=== PATIENT | female | born 1960 | race Caucasian/White ===

== ENCOUNTER → 2018-11-12 | Outpatient (CLI) | payer BC ==
--- NOTE | 2018-11-12 16:18 | PCVCIMAG ---
APPROVED REPORT Indications Bruit Current Smoker Risk Factors Hypertension: Hyperlipidemia Diabetes Doppler Spectral Velocity Analysis PSV / EDVPSV / EDV ECA (R) 154 / 15 cm/sECA (L) 118 / 16 cm/s dICA (R) 65 / 26 cm/sdICA (L) 71 / 24 cm/s Jareth (R) 68 / 25 cm/smICA (L) 61 / 20 cm/s pICA (R) 86 / 28 cm/spICA (L) 65 / 21 cm/s Bulb (R) 98 / 29 cm/sBulb (L) 60 / 23 cm/s dCCA (R) 75 / 24 cm/sdCCA (L) 83 / 26 cm/s mCCA (R) 102 / 31 cm/smCCA (L) 101 / 32 cm/s Vert (R) 38 / 10 cm/sVert (L) 47 / 15 cm/s ICA/CCA 1.15ICA/CCA 0.86 Basic Measurements Blood Pressure: Pulses: Right Left RightLeft Brachial(Sitting) 120/56imOf397/74mmHgTemporal Real Time B-Mode Imaging Vert. (R)AntegradeVert. (L)Antegrade Findings The right carotid bulb has mild plaque. The right proximal internal carotid artery shows no significant stenosis. The right common carotid artery shows no significant stenosis. The right external carotid artery shows no significant stenosis. The left carotid bulb has mild plaque. The left proximal internal carotid artery shows no significant stenosis. The left common carotid artery shows no significant stenosis. The left external carotid artery shows no significant stenosis. Conclusion 1. Mild bilateral plaquing without significant stenosis. 2. Antegrade vertebral flow.
--- NOTE | 2018-11-12 17:34 | PCVCIMAG ---
APPROVED REPORT Study performed: 11/12/2018 15:40:57 Exam: Stress Echocardiogram Indication: Chest pain , Hypertension,dyspnea,palpitations Patient Location: Echo lab Stress Nurse: Kayla Toure RN Room #: 1 Status: routine Ht: 5 ft 9 in HR: 76 bpm BP: 116/68 mmHg Rhythm: Bifascicular block Medical History Medical History: Diabetes, HTN, Cardiac Risk Factors: HTN, DM, FHX of CAD Previous Cardiac Procedures: None Pretest Chest Pain Characteristics: SCAPULAR,BACK AND RIB PAIN AT REST Exercise History: Indeterminate Procedure The patient underwent an Exercise Stress Test using the Porsche Protocol. Blood pressure, heart rate, and EKG were monitored. An Echocardiogram was performed by land mobile radio technician in four stages in quad fashion. At peak stress, four selected images were obtained and placed side by side with resting images for comparison. Stress Test Details Stress Test: Exercise stress testing was performed using a Porsche protocol. HR Resting HR: 76 bpmMax Heart Rate (APMHR): 162 bpm Max HR Achieved: 155 bpmTarget HR (85% APMHR): 137 bpm % of APMHR: 95 Recovery HR: 84 bpm HR response to stress: Normal HR response to stress BP Resting BP: 116/68 mmHg Max BP: 164/86 mmHg Recovery BP: 110/70 mmHg BP response to stress: Normal blood pressure response to stress. ECG Resting ECG: Sinus Rhythm, RBBB Stress ECG: Sinus rhythm with frequent PVCs, resolved with exertion ST Change: Non-ischemic Maximum ST Deviation: 0 mm Arrhythmia: VPC's Recovery ECG: Sinus Rhythm, NSSTT changes Recovery ST Change: Non-ischemic Recovery ST Deviation: 0 mm Recovery Arrhythmia: Frequent PVCs Clinical Reason for Termination: Maximal effort Stress Symptoms: Fatigue, Exercise duration: 6 min 41 sec Highest Stage Achieved: Stage 3: 3.4 mph at 14% grade. Exercise capacity: 9.0 METs Overall Exercise Capacity for Age: Average Scale: Sedentary Angina Score: None No complications. Stress ECG Conclusion The patient exercised according to the PORSCHE protocol for 6:41 mins; achieving a work level of 9.0 METS. The resting heart rate of 76 bpm arturo to a maximum heart rate of 155 bpm. This value [id number] % of the maximal, age-predicted heart rate. The resting blood pressure of 116/68 mmHg, arturo to a maximum blood pressure of 164/86 mmHg. The exercise test was stopped due to fatigue. Catalan Treadmill Score is 6.0 which is Low risk. Pre-Stress Echo The resting Echocardiogram showed normal left ventricular contractility with an estimated Ejection Fraction of about 55-60%. Normal wall motion in all segments on baseline images. Post-Stress Echo The stress Echocardiogram showed normal left ventricular contractility with an estimated Ejection Fraction of about 65-70%. Normal augmentation of wall motion in all segments on post stress images. Clinical No clinical or ECG evidence for ischemia. Conclusion Clinical Response: Non-ischemic Exercise Capacity: Average Stress ECG Response: Non-ischemic Stress Echo Images: Non-ischemic No clinical, EKG or echocardiographic evidence for ischemia. No echocardiographic evidence for exercise induced ischemia. Normal stress echocardiogram with maximal exercise stress. <Conclusion> No clinical, EKG or echocardiographic evidence for ischemia. No echocardiographic evidence for exercise induced ischemia. Normal stress echocardiogram with maximal exercise stress.
--- NOTE | 2018-11-13 16:57 | PCVCIMAG ---
EXAM: ULTRASOUND OF THE THYROID INDICATION: Thyroid nodules. FINDINGS: The right thyroid lobe measures 2.3 x 2.5 x 5.6 cm. The left thyroid lobe measures 2.1 x 2.4 x 5.3 cm. Several small cysts in the upper right thyroid lobe. Dominant cyst measuring 1.0 x 1.4 x 1.5 cm in the mid thyroid lobe with an adjacent smaller cyst. In the mid/lower right thyroid lobe laterally is a 1.0 x 1.1 x 1.3 cm partially solid partially cystic nodule. In the lower right thyroid lobe is a 0.6 x 0.7 x 0.8 cm partially solid/partially cystic nodule. In the upper left thyroid lobe is a 1.2 x 1.3 x 1.3 cm partially solid/partially cystic nodule. In the mid left thyroid lobe is a 1.5 x 1.7 x 1.8 cm benign-appearing cyst. In the lower left thyroid lobe is a 1.4 x 1.6 x 1.8 similar partially solid/partially cystic nodule. IMPRESSION: Findings most consistent with multi nodular thyroid goiter as detailed above. There are multiple cysts in the thyroid and multiple areas of partially cystic/partially solid nodules as detailed above. Further evaluation by ENT could be done if needed. LOC:[id number]
== END | disposition home or self-care (01) ==
LOC: PCVCIMAG 14:48
PROVIDERS: ATTEND Internal Medicine
DX: E04.2 Nontoxic multinodular goiter (principal); E78.5 Hyperlipidemia, unspecified; E11.9 Type 2 diabetes mellitus without complications; I10 Essential (primary) hypertension; R00.2 Palpitations; R06.00 Dyspnea, unspecified; R07.2 Precordial pain; F17.200 Nicotine dependence, unspecified, uncomplicated; Z82.49 Family history of ischemic heart disease and other diseases of the circulatory system
CPT/HCPCS: 76536; 93325; 93351; 93880

== ENCOUNTER → 2020-03-31 | Outpatient (CLI) | payer BC | END | disposition home or self-care (01) | LOC: LAB 12:31 | PROVIDERS: ATTEND Internal Medicine Cardiovascular Disease | DX: Z11.59 Encounter for screening for other viral diseases (principal); I48.91 Unspecified atrial fibrillation | CPT/HCPCS: U0003-CS ==

== ENCOUNTER → 2020-04-04 | Outpatient (CLI) | payer BC ==
[~2020-04-04] VITALS: Ht 175.3 cm; Wt 93.0 kg
[~2020-04-04] MED LIST: ASPI325T11 PO; AZIL1TAB3 PO; DULA0.75 SQ; EVOL140P3 SQ; HYDROmorphone 2 MG/ML VIAL IV PRN; IOHEXOL 300 MG/ML 100ML VIAL. ONE; IV RINGERS,LACTATED 1000ML 1,000 ML IV SCH; KETAMINE HCL IN NACL, ISO-OSM 50 MG/5 ML SYRINGE ONE; LIDOCAINE 1% Multi-Dose 20 ML VIAL. INJ ONE; LIDOCAINE 1% Multi-Dose 20 ML VIAL. ONE; LIDOCAINE 1% PF 2 ML VIAL. ID PRN; LIDOCAINE 2% 100 MG/5 ML SYRINGE. ONE; LIDOCAINE 2% PF 5 ML VIAL. ONE; LIDOCAINE 2% TOPICAL JELLY 30GM TUBE. TP ONE; MIDAZOLAM HCL/PF 2 MG/2 ML VIAL. ONE; MORPHINE SULFATE 2 MG/ML VIAL. IV PRN; OMEP20TA63 PO; ONDANSETRON PF 4 MG/2 ML VIAL. IV PRN; ONDANSETRON PF 4 MG/2 ML VIAL. ONE; PHENYLEPHRINE in 0.9% NACL PF 1 MG/10 ML SYRINGE. IV ONE; PROCHLORPERAZINE 10 MG/2 ML VIAL. IV PRN; PROPOFOL 10 MG/ML (20ML) VIAL. IV ONE; TIZA4TAB2 PO; VANCOMYCIN 1GM IVPB FOR OMNI 250 ML IV ONE; VANCOMYCIN 1GM IVPB FOR OMNI 250 ML ONE; ePHEDrine PF IN SALINE 50 MG/10 ML SYRINGE. IV ONE; fentaNYL PF VIAL 100 MCG/2 ML VIAL IV PRN; fentaNYL PF VIAL 250 MCG/5 ML VIAL ONE
[2020-04-04 09:57] LABS: BASO # 0.1 x10^3/uL (0.0-0.2); BASO % 1 % (0-3); EOS # 0.1 x10^3/uL (0.0-0.7); EOS % 2 % (0-3); HEMATOCRIT 42.3 % (36.0-47.0); HEMOGLOBIN 14.3 g/dL (12.0-15.5); LYMPH # 1.1 x10^3/uL (1.0-4.8); LYMPH % 23 % (24-48); MEAN CORPUSCULAR HEMOGLOBIN 30 pg (25-35); MEAN CORPUSCULAR HGB CONC 34 g/dL (31-37); MEAN CORPUSCULAR VOLUME 88 fL (79-100); MONO # 0.3 x10^3/uL (0.0-1.1); MONO % 7 % (0-9); NEUT # 3.2 x10^3/uL (1.8-7.7); NEUT % 67 % (31-73); PLATELET COUNT 175 x10^3/uL (140-400); RED BLOOD COUNT 4.83 x10^6/uL (3.50-5.40); RED CELL DISTRIBUTION WIDTH 13.4 % (11.5-14.5); WHITE BLOOD COUNT 4.7 x10^3/uL (4.0-11.0)
[2020-04-04 09:58] VITALS: BP 137/67
[2020-04-04 10:06] LABS: PROTHROMBIN TIME PATIENT 12.7 SEC (11.7-14.0)
[2020-04-04 10:08] LABS: CREATININE 1.1 mg/dL (0.6-1.0); GFR 50.7; POTASSIUM 3.9 mmol/L (3.5-5.1)
--- NOTE | 2020-04-04 10:31 | PDOC ---
MODERATE SEDATION ASSESSMENT RISKS/ALTERNATIVES Risks/Alternatives Risks and alternatives of this type of sedation and procedure discussed with: RISK/ALTERNATIVES: Patient H & P ON CHART H & P H & P on chart and reviewed for co-morbid conditions and appropriate labs. H&P ON CHART: Yes STATUS PREG STATUS ASSESSED: N/A MEDS/ALLERGIES REVIEWED Meds/Allergies Reviewed Medications and Allergies including time and route of recently administered narcotics and sedatives. MEDS/ALLERGIES REVIEWED: Yes ASA RATING ASA RATING: II AIRWAY ASSESSMENT Airway Assessment Airway patency, oral function limitations, presence of caps, crowns, dentures, partials, and ability to extend neck assessed. AIRWAY ASSESSMENT: Yes MALLAMPATI SCORE MALLAMPATI SCORE: II PRE-SEDATION ASSESSMENT PRE-SEDATION ASSESSMENT: Yes LATOSHA LAZARO MD Apr 04, 2020 10:31
--- NOTE | 2020-04-04 10:38 | PDOC1 ---
History and Physical Visit Information Date of Admission: Apr 04, 2020 at 10:02 Source: Patient History of Present Illness History of Present Illness Ami is a pleasant 60 y.o woman presenting to the r&d lab technician for elective percutaneous repair of an incidentally discovered ASD. She has had severe PVC's and underwent previous ablation which helped improve her palpitation symptoms. In the w/u of dyspnea she underwent a PCI of the ostial RCA and despite PVC ablation, PCI and optimization of her BP, she continued to have intermittent dyspnea and fatigue in her daily life. She was seen in the office and history was corroborated with family members present and overall, she is felt to have had increasing fatigue. Cardiac Risk Factors Comments HTN DLP ASD CAD s/p ostial RCA PCI Past Surgical History Comments PCI and PVC ablation Current Medications Current Medications Current Medications Ephedrine Sulfate (ePHEDrine PF IN SALINE SYRINGE) 50 mg STK-MED ONCE IV ; Start 04/04/20 at 08:31; Stop 04/04/20 at 08:31; Status DC Fentanyl Citrate (Fentanyl 2ml Vial) 25 mcg PRN Q5MIN PRN IV MILD PAIN 1-3; Start 04/04/20 at 07:00; Stop 04/04/20 at 20:00 Fentanyl Citrate (Fentanyl 2ml Vial) 50 mcg PRN Q5MIN PRN IV MODERATE TO SEVERE PAIN; Start 04/04/20 at 07:00; Stop 04/04/20 at 20:00 Heparin Sodium/ Sodium Chloride 500 ml @ As Directed STK-MED ONCE .ROUTE ; Start 04/04/20 at 10:15; Stop 04/04/20 at 10:15; Status DC Hydromorphone HCl (Dilaudid) 0.5 mg PRN Q10MIN PRN IV SEV PAIN, Second choice; Start 04/04/20 at 07:00; Stop 04/04/20 at 20:00 Iohexol (Omnipaque 300 Mg/ml) 100 ml STK-MED ONCE .ROUTE ; Start 04/04/20 at 10:14; Stop 04/04/20 at 10:14; Status DC Ketamine HCl (Ketamine) 50 mg STK-MED ONCE .ROUTE ; Start 04/04/20 at 08:33; Stop 04/04/20 at 08:33; Status DC Ketamine HCl (Ketamine) 50 mg STK-MED ONCE .ROUTE ; Start 04/04/20 at 10:27; Stop 04/04/20 at 10:28; Status DC Lidocaine HCl (Lidocaine 1% 20ml Vial) 20 ml STK-MED ONCE .ROUTE ; Start 04/04/20 at 10:14; Stop 04/04/20 at 10:14; Status DC Lidocaine HCl (Lidocaine Pf 2% Vial) 5 ml STK-MED ONCE .ROUTE ; Start 04/04/20 at 08:31; Stop 04/04/20 at 08:31; Status DC Lidocaine HCl (Xylocaine 2% Topical 30gm Tube) 30 naresh STK-MED ONCE TP ; Start 04/04/20 at 10:29; Stop 04/04/20 at 10:29; Status DC Lidocaine HCl (Xylocaine-Mpf 1% 2ml Vial) 2 ml PRN 1X PRN ID PRIOR TO IV START; Start 04/04/20 at 07:00; Stop 04/04/20 at 20:00 Midazolam HCl (Versed) 2 mg STK-MED ONCE .ROUTE ; Start 04/04/20 at 08:32; Stop 04/04/20 at 08:32; Status DC Morphine Sulfate (Morphine Sulfate) 1 mg PRN Q10MIN PRN IV SEVERE PAIN 7-10; Start 04/04/20 at 07:00; Stop 04/04/20 at 20:00 Ondansetron HCl (Zofran) 4 mg PRN Q6HRS PRN IV NAUSEA/VOMITING; Start 04/04/20 at 07:00; Stop 04/04/20 at 20:00 Ondansetron HCl (Zofran) 4 mg STK-MED ONCE .ROUTE ; Start 04/04/20 at 10:30; Stop 04/04/20 at 10:30; Status DC Phenylephrine HCl (PHENYLEPHRINE in 0.9% NACL PF) 1 mg STK-MED ONCE IV ; Start 04/04/20 at 08:31; Stop 04/04/20 at 08:31; Status DC Prochlorperazine Edisylate (Compazine) 5 mg PACU PRN PRN IV NAUSEA, MRX1; Start 04/04/20 at 07:00; Stop 04/04/20 at 20:00 Propofol (Diprivan) 200 mg STK-MED ONCE IV ; Start 04/04/20 at 08:31; Stop 04/04/20 at 08:31; Status DC Ringer's Solution 1,000 ml @ 30 mls/hr Q24H IV ; Start 04/04/20 at 07:00; Stop 04/04/20 at 18:59 Vancomycin HCl 250 ml @ As Directed STK-MED ONCE .ROUTE ; Start 04/04/20 at 10:26; Stop 04/04/20 at 10:26; Status DC Allergies Allergies Allergies Coded Allergies Type Severity Reaction Last Updated Verified Cephalosporins Allergy Intermediate 04/04/20 Yes amoxicillin Allergy Intermediate 04/04/20 Yes cephalexin Allergy Intermediate 04/04/20 Yes erythromycin base Allergy Intermediate 04/04/20 Yes Social History Comments No alcohol, tob or illicits. 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 She is . Family History Comments Non-contributory ROS Review of System +fatigue, intermittent dyspnea. , otherwise, negative for 06/15 systems reviewed. Physical Exam Comments GEN.: No apparent distress. Alert and oriented. HEENT: Head is normocephalic, atraumatic NECK: Supple. LUNGS: Clear to auscultation. HEART: RRR, S1, S2 present. Peripheral pulses intact ABDOMEN: Soft, nontender. Positive bowel sounds. EXTREMITIES: Without any cyanosis. NEUROLOGIC: Normal speech, normal tone PSYCHIATRIC: Normal affect, normal mood. SKIN: No ulcerations Vitals VITALS Vital Signs Date Time Temp Pulse Resp B/P (MAP) Pulse Ox O2 Delivery O2 Flow Rate FiO2 04/04/20 09:58 98.1 61 20 137/67 (90) 98 Room Air 98.1 Labs Labs Laboratory Tests Test 04/04/20 09:50 White Blood Count 4.7 x10^3/uL (4.0-11.0) Red Blood Count 4.83 x10^6/uL (3.50-5.40) Hemoglobin 14.3 g/dL (12.0-15.5) Hematocrit 42.3 % (36.0-47.0) Mean Corpuscular Volume 88 fL (79-100) Mean Corpuscular Hemoglobin 30 pg (25-35) Mean Corpuscular Hemoglobin Concent 34 g/dL (31-37) Red Cell Distribution Width 13.4 % (11.5-14.5) Platelet Count 175 x10^3/uL (140-400) Neutrophils (%) (Auto) 67 % (31-73) Lymphocytes (%) (Auto) 23 % (24-48) Monocytes (%) (Auto) 7 % (0-9) Eosinophils (%) (Auto) 2 % (0-3) Basophils (%) (Auto) 1 % (0-3) Neutrophils # (Auto) 3.2 x10^3/uL (1.8-7.7) Lymphocytes # (Auto) 1.1 x10^3/uL (1.0-4.8) Monocytes # (Auto) 0.3 x10^3/uL (0.0-1.1) Eosinophils # (Auto) 0.1 x10^3/uL (0.0-0.7) Basophils # (Auto) 0.1 x10^3/uL (0.0-0.2) Prothrombin Time 12.7 SEC (11.7-14.0) Prothromb Time International Ratio 1.0 (0.8-1.1) Sodium Level 142 mmol/L (136-145) Potassium Level 3.9 mmol/L (3.5-5.1) Chloride Level 105 mmol/L (98-107) Carbon Dioxide Level 28 mmol/L (21-32) Anion Gap 9 (6-14) Blood Urea Nitrogen 14 mg/dL (7-20) Creatinine 1.1 mg/dL (0.6-1.0) Estimated GFR (Cockcroft-Gault) 50.7 Glucose Level 106 mg/dL (70-99) Calcium Level 9.0 mg/dL (8.5-10.1) Laboratory Tests Test 04/04/20 09:50 White Blood Count 4.7 x10^3/uL (4.0-11.0) Red Blood Count 4.83 x10^6/uL (3.50-5.40) Hemoglobin 14.3 g/dL (12.0-15.5) Hematocrit 42.3 % (36.0-47.0) Mean Corpuscular Volume 88 fL (79-100) Mean Corpuscular Hemoglobin 30 pg (25-35) Mean Corpuscular Hemoglobin Concent 34 g/dL (31-37) Red Cell Distribution Width 13.4 % (11.5-14.5) Platelet Count 175 x10^3/uL (140-400) Neutrophils (%) (Auto) 67 % (31-73) Lymphocytes (%) (Auto) 23 % (24-48) Monocytes (%) (Auto) 7 % (0-9) Eosinophils (%) (Auto) 2 % (0-3) Basophils (%) (Auto) 1 % (0-3) Neutrophils # (Auto) 3.2 x10^3/uL (1.8-7.7) Lymphocytes # (Auto) 1.1 x10^3/uL (1.0-4.8) Monocytes # (Auto) 0.3 x10^3/uL (0.0-1.1) Eosinophils # (Auto) 0.1 x10^3/uL (0.0-0.7) Basophils # (Auto) 0.1 x10^3/uL (0.0-0.2) Prothrombin Time 12.7 SEC (11.7-14.0) Prothromb Time International Ratio 1.0 (0.8-1.1) Sodium Level 142 mmol/L (136-145) Potassium Level 3.9 mmol/L (3.5-5.1) Chloride Level 105 mmol/L (98-107) Carbon Dioxide Level 28 mmol/L (21-32) Anion Gap 9 (6-14) Blood Urea Nitrogen 14 mg/dL (7-20) Creatinine 1.1 mg/dL (0.6-1.0) Estimated GFR (Cockcroft-Gault) 50.7 Glucose Level 106 mg/dL (70-99) Calcium Level 9.0 mg/dL (8.5-10.1) Images Images BASHIR images from [facility] reviewed. Approximately 9 mm ASD in the inferior/posterior location. Normal EF ECG EKG: NSR VTE Prophylaxis Ordered VTE Prophylaxis Devices: No VTE Pharmacological Prophylaxi: No Assessment/Plan Assessment/Plan 1. Dyspnea with incidental ASD. Plan for a RHC with shunt study, BASHIR and determine approach for closure. I discussed the risks, benefits and alternatives to the procedure with the patient, her sister and her . patient and family understand and wish to proceed. Justicifation of Admission Dx: Justifications for Admission: Justification of Admission Dx: Yes Comments: asd closure LATOSHA LAZARO MD Apr 04, 2020 10:38
[2020-04-04 13:35] VITALS: BP 140/74
--- NOTE | 2020-04-04 16:22 | CARD ---
MR#: [id number] Date of Study: 04/04/2020 Ordering Physician: LATOSHA WELLER, Referring Physician: LATOSHA WELLER, Tech: KATIA LAND RTR APPROVED REPORT Technologist: KATIA LAND RTR Nurse: Destini Dunaway R.N. Procedure(s) performed: MODERATE SEDATION: ADMINISTERED BY ANESTHESIA FLUORO TIME: 2.9 MIN DOSE: 4.4 GYCM2 RHC with shunt calculation HISTORY : The patient is a 60 year-old female with a history of . INDICATION The indication(s) include : ASD. Heart Failure Heart Failure: Yes If Yes, Newly Diagnosed: No If Yes, HF Type: Diastolic If Yes, NYHA Class: Class II PROCEDURE NARRATIVE Clinical indication: 60-year-old woman who presented with exertional fatigue and dyspnea in the setting of a atrial septal defect. Informed consent was obtained from the patient and the risks and benefits were discussed with the pat ient's family as well. Procedure details: After induction of deep anesthesia with propofol by the anesthesia service right common femoral venou s access was obtained and a 8 Malaysian sheath was placed via the modified Seldinger technique and under 2% lidocaine local anesthesia. Next, a 8 Malaysian PA catheter was advanced through the right heart ch ambers and pressures and saturations were obtained. Next, a 6 Malaysian MPA catheter was advanced to th e SVC and pulled down to the IVC where saturations were also obtained. Findings: Hemodynamics Aorta: 110/80 Saturations: IVC 81% SVC 79.9% PA 81.7% Arterial saturation 97%, assumed pulmonary vein saturation 97% Tom cardiac output 6.7 L/min Right heart catheterization: Pulmonary capillary wedge pressure: 10 mmHg PA: 30/11/18 RV: 33/4/10 RA: 11/7 Qp/Qs: 1.03 Given the patient had normal biventricular filling pressures, no significant [id number] shunting a nd normal anatomical appearance of the right atrium and right ventricle on transesophageal echo it wa s felt that the atrial septal defect was not hemodynamically significant and due to lack of any evide nce of paradoxical embolus further intervention was deferred. Conclusion 1. Normal biventricular filling pressures 2. No evidence of pulmonary hypertension 3. Normal cardiac output 4. No evidence of right to left shunting, Qp/Qs 1.03 Recommendations Aggressive Medical Therapy Signed by : Latosha Weller, Electronically Approved : 04/04/2020 16:22:35
--- NOTE | 2020-04-04 16:44 | CARD ---
MR#: [id number] Date of Study: 04/04/2020 Ordering Physician: LATOSHA WELLER, Referring Physician: Rossi BUCKLEY: Jayda Rodrigues RDCS APPROVED REPORT EXAM: Transesophageal echocardiogram with color flow Doppler. INDICATION Evaluate for ASD/PFO Closure 2D DIMENSIONS RVDd2.4 (2.9-3.5cm) Reason For Test : Evaluate for ASD/PFO Closure PROCEDURE After obtaining informed consent, patient underwent transesophageal echo in the [facility]. Type of Sedation : General Anesthesia Sedation was administered by Armando Killian CRNA. Sedation was achieved with Propofol 200 mg intravenously. Sedation was achieved with Versed 2 mg intravenously. Sedation was achieved with Ketamine 35 mg intravenously. Transesophageal probe was inserted and advanced into esophagus by Latosha Weller MD. The BASHIR was performed without complications. Throughout the procedure, the blood pressure, pulse oximetry, cardiac rhythm, and rate were monitored . The patient tolerated the procedure without adverse effects. Recovery from general anesthesia was une ventful and vital signs were stable. Fentayl 25 mc LEFT VENTRICLE The left ventricle is normal size. There is normal left ventricular wall thickness. The left ventricu lar systolic function is normal and the ejection fraction is within normal range. EF 55% There is nor mal LV segmental wall motion. No left ventricle thrombus noted on this study. There is no ventricular septal defect visualized. There is no left ventricular aneurysm. There is no mass noted in the left ventricle. RIGHT VENTRICLE The right ventricle is normal size. There is normal right ventricular wall thickness. The right ventr icular systolic function is normal. ATRIA The left atrium size is normal. The right atrium size is normal. There is an atrial septal defect loc ated posterior and inferior in an elliptical shape, measuring approximately 11 mm on short axis and 2 0 mm on long axis. The anterior, superior, posterior rims are adequate. The inferior rim appears to b e deficient. AORTIC VALVE The aortic valve is normal in structure and function. MITRAL VALVE The mitral valve is normal in structure and function. TRICUSPID VALVE The tricuspid valve is normal in structure and function. GREAT VESSELS The aortic root is normal in size. The ascending aorta is normal in size. The IVC is normal in size a nd collapses >50% with inspiration. Critical Notification Critical Value: No <Conclusion> There is an atrial septal defect located in the mid infero-posterior septum in an elliptical shape, m easuring approximately 11 mm on short axis and 20 mm on long axis. The anterior, superior, posterior rims are adequate. The inferior rim appears to be deficient with close proximity to the IVC. Normal LVEF of 55% Normal RA/RV size. Signed by : Latosha Weller, Electronically Approved : 04/04/2020 16:43:38
== END | disposition home or self-care (01) ==
LOC: CCL 08:40 → 2 NORTH 10:02 → UNDOADMIN 10:02
PROVIDERS: ATTEND Internal Medicine Cardiovascular Disease
DX: I25.10 Atherosclerotic heart disease of native coronary artery without angina pectoris (principal); Q21.1 Atrial septal defect; I11.0 Hypertensive heart disease with heart failure; I50.9 Heart failure, unspecified; E11.9 Type 2 diabetes mellitus without complications; F41.9 Anxiety disorder, unspecified; E78.5 Hyperlipidemia, unspecified; E66.9 Obesity, unspecified; Z68.1 Body mass index [BMI] 19.9 or less, adult; Z88.8 Allergy status to other drugs, medicaments and biological substances; Z98.890 Other specified postprocedural states; Z79.899 Other long term (current) drug therapy; Z87.891 Personal history of nicotine dependence
CPT/HCPCS: 36415; 76376; 80048; 82962; 85025; 85610; 93312; 93325; 93451; C1773; C1892; J1644; J2250; J2370; J2704; J3370; J3490